=== PATIENT | male | born 1945 | race Caucasian/White ===

== ENCOUNTER 2018-07-11 07:38 | Observation (INO) | payer MEDICARE, OTHER ==
[~2018-07-11] VITALS: Ht 170.2 cm; Wt 92.5 kg
[2018-07-11] VITALS (13 sets, daily range): BP systolic 113–132; BP diastolic 54–89
--- NOTE | ~2018-07-11 | H ---
[address] [address] HISTORY AND PHYSICAL Name: SHANT CONSTANTINO Demetris Room: [address] Alee Kaiser#: [id number] Admission: 07/11/18 Attend Phys: Jose Arias MD, Discharge: 07/12/18 Date of : 43 Report #: [id number] THIS REPORT FOR: //name// Please refer to the History and Physical performed in the physician's office. By: [id number] Records Staff MANUEL /KIKI
[~2018-07-11 07:38] MED LIST: ALEVE220 MG PO; ALLOPURINOL 30300 M1 PO; ALLOPURINOL 30300 M2 PO; ASA5UEC PO; ASPIR 8181 MG PO; ASPIRIN325 PO; BYSTOLIC20 MG PO; CENTRUM SILVER1 EAC4 PO; CRESTOR10 MG PO; FISH OIL 1,0001 EAC5 PO; FISH OIL 1,0001 EAC9 PO; FISH OIL 1,001000 M2 PO; FLAX OIL1000 MG PO; FUROSEMIDE 20 M20 M1 PO; GEMFIBROZIL 60600 MG PO; IMDUR 60 MG TAB60 M1 PO; ISOSORBIDE MON120 MG PO; LASIX 20 MG TAB20 MG PO; LORTAB 5-500 T1 EAC1 PO; MIDODRINE HCL 55 M1 PO; MIDODRINE HCL2.5 M1 PO; MINIPRIN81 MG PO; NIASPAN 500 MG500 M1 PO; NITROGLYCERIN0.4 MG SUBLING; NORVASC 2.5 MG2.5 M1 PO; NORVASC2.5 MG PO; OMEGA-31000 M1 PO; PLAVIX 75 MG TA75 M1 PO; PLAVIX 75 MG TA75 MG PO; RANEXA 500 MG500 M1 PO; RANEXA1000 MG PO; RANEXA500 MG PO; SORINE 80 MG TA80 M1 PO; TOPROL XL100 MG PO; TOPROL XL25 MG PO; TOPROL XL50 MG PO; ZOCOR 20 MG TAB20 M1 PO
[2018-07-11 08:17] LABS: HEMATOCRIT 42.2 % (42.0-52.0); HEMOGLOBIN 14.6 gm/dL (14.0-18.0); MCH 30.5 pg (26.0-34.0); MCHC 34.6 g/dL (28.0-37.0); MCV 88.2 fL (80.0-100.0); MPV 7.1 fl. (7.2-11.1); RBC 4.78 mil/uL (4.50-6.00); WBC 6.5 thou/uL (4.0-11.0)
[2018-07-11] MEDS ORDERED: LIPITOR 20 MG T20 M1 PO (08:17)
[2018-07-11] MEDS ORDERED: IMDUR 60 MG TAB60 M1 PO (08:18)
[2018-07-11 08:25] LABS: ANION GAP 6 mmol/L (7-16); BUN 12 mg/dL (7-18); CALCIUM 8.4 mg/dL (8.5-10.1); CHLORIDE 106 mmol/L (98-107); CO2 29 mmol/L (21-32); GLUCOSE 183 mg/dL (70-99); SODIUM 141 mmol/L (136-145)
[2018-07-11 08:26] LABS: APTT 27.1 Seconds (25.0-31.3); PROTIME 10.2 Seconds (9.20-11.50)
[2018-07-11 08:29] LABS: ALKALINE PHOSPHATASE 65 U/L (46-116); CHOLESTEROL 110 mg/dL (<200); HDL CHOLESTEROL 28 mg/dL (>40); LDL CHOLESTEROL 43 mg/dL (<100); SGOT 34 U/L (15-37); SGPT 58 U/L (30-65); TC:HDL 3.9 Ratio (Not establshd); TOTAL BILIRUBIN 0.6 mg/dL (<0.1-1.0); TOTAL PROTEIN 7.1 g/dL (6.4-8.2); TRIGLYCERIDE 198 mg/dL (<150); VLDL 40 mg/dL (<40)
[2018-07-11 08:32] LABS: SERUM ASSESSMENT Clear
--- NOTE | 2018-07-11 16:16 | EKG ---
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[facility] 1945 Requested By: Jose Arias Order Number: [id number] Joanna MD: Jose Arias Measurements Intervals [place] Rate: 63 P: 41 MO: 290 QRS: 28 QRSD: 112 T: 71 QT: 412 QTc: 422 Interpretive Statements Sinus rhythm Prolonged [place] interval Borderline intraventricular conduction delay Compared to ECG 02/17/2016 08:59:01 No significant changes Electronically Signed On 07-11-2018 16:16:00 CDT by Jose Arias [email or web address] <ELECTRONICALLY SIGNED> By: Jose Arias MD, [facility] 07/11/18 1616 5 5 Jose Arias MD, FACC /EPI
--- NOTE | 2018-07-11 16:19 | EKG ---
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 07/11/18 1619 1200 1200 Jose Arias MD, FACC /EPI
--- NOTE | 2018-07-11 17:02 | CARD ---
[address] [address] CARDIAC CATH REPORT Name: SHANT CONSTANTINO Room: [address] Alee M.RTacos#: [id number] Admission: 07/11/18 Attend Phys: Jose Arias MD, Discharge: Date of : 41 Report #: [id number] THIS REPORT FOR: //name// APPROVED REPORT Study performed: 07/11/2018 08:10:02 Patient Details Patient Status: Out-Patient Room #: The patient is a 72 year-old male Event Personnel Jose Arias Health And Social Care Teacher, Marisela Cruz RTR Monitor, Mateus Cao (R) Nan Luna Frances Hands Hanger Procedures Performed Art Access - R femoral artery* Left Heart Cath w/or w/o Coronaries [facility] w/wo Plasty Single LAD PTCA Single Vessel LAD PCISINGLE, FFR, Atherectomy, Hemostasis w/ Angioseal Indication Unstable angina Risk Factors Hypercholesterolemia, Hypertension Previous Procedures/Diagnoses Previous PCI Admission/Lab Medications/Medications given during procedure Aspirin, Platelet Aff. Inhib., Plavix PO 600 mg, Aspirin PO 162 mg, Heparin IV 8000 units, Angiomax IV 14 ml, Angiomax Drip IV 32.55 ml per hr Procedure Narrative The patient was brought electively to the Cardiac Catheterization Laboratory and was prepped and draped in a sterile manner. The right femoral was infiltrated with 2% Lidocaine subcutaneous anesthesia. A 6Fr pinnacle sheath was inserted into the . Coronary angiography was performed using coronary diagnostic catheters. The right coronary system was accessed and visualized with a Diagnostic 6Fr AL1 catheter. The left coronary system was accessed and visualized with a Diagnostic 6Fr JL4 catheter. The left ventricle was accessed and visualized with a Diagnostic 6Fr straight pigtail catheter. An aortogram of the HARRIS was performed. Closure [place] [address] CARDIAC CATH REPORT Name: DOUGIESHANT Demetris Room: [address] M.R.#: [id number] Admission: 07/11/18 Attend Phys: Jose Arias MD, Discharge: Date of : 43 Report #: [id number] a Fr Angioseal STS 6Fr. Hemostasis was obtained with manual pressure following sheath removal without any complications. The patient tolerated the procedure well and there were no complications associated with the procedure. There was no hematoma. Intraoperative Conscious Sedation Sedation start time: 09:41 Case end Time: 11:20 Fentanyl 50 mcg Versed 3 mg Fluoro Time: 31.6 minutes Dose: DAP 035306 cGycm2 4278 mGy Contrast Type and Amount: Visipaque 600 ml Diagnostic Cath Left Main 0 Percent narrowing LAD 70% proximal stenosis involving the takeoff of the first diagonal branch with 90% distal LAD in-stent restenosis Circumflex Nondominant vessel with 30% proximal mid and distal narrowing Right Coronary Anomalous origin dominant vessel with 40% narrowing at the acute margin Left Ventriculography The left ventricle is normal in size with normal contractility. The left ventricular ejection fraction is estimated to be 60%. Left ventricular wall motion abnormalities are not present. There is no mitral insufficiency. IVUS Fractional Flow [place] was performed on the distal left anterior descending artery segment vessel. A 6Fr XB 3.0 Guide Catheter was used to engage the ostium. A FloWire Interventional Guidewire was used. IVUS Findings FFR was performed on sequential proximal and distal LAD lesions with a minimum value of 0.77 after adenosine provocation, suggesting hemodynamic significance Hemodynamics The aortic pressure is 125/59 mmHg with a mean of 83 mmHg. The left ventricular pressure is 122/1 mmHg with a mean of mmHg. The left ventricular end diastolic pressure is 10 mmHg. Pullback from the left ventricle to the aorta revealed no gradient [place] [address] CARDIAC CATH REPORT Name: SHANT CONSTANTINO Room: [address] M.R.#: [id number] Admission: 07/11/18 Attend Phys: Jose Arias MD, Discharge: Date of : 43 Report #: [id number] valve. PCI Technique Lesion Anticoagulation was achieved with Angiomax. Percutaneous coronary intervention was performed on the distal left anterior descending artery segment. The lesion stenosis prior to intervention was 90% with ESMER 3 flow. A 6FR XB 3.0 100CM Guide Catheter was used to engage the ostium. A ProwaterFlex 180CM Interventional Guidewire was used to cross the lesion. BALLOON DILATION A Balloon catheter NC Trek RX 2.0 X 15 was inserted and inflated up to 10.00atm for 12seconds. Additional Inflation: 12.00atm for 10seconds. Angiosculpt PTCA 2.0x10mm was inserted into the distal left anterior decending artery segment and inflated up to 16atm for 9 seconds. Additional inflation: 14:00atm for 5 seconds, 16:00atm for 11 seconds, 16:00atm for 11 seconds. NC Trek RX 2.25x12 was inserted and inflated up to 12:00atm for 4 seconds. Additional inflation for 16:00atm for 18 seconds, 16:00atm for 10 seconds. STENT DEPLOYMENT A drug-eluting stent [place] 2.0x15 was inserted and inflated up to 14.00atm for 8seconds. Additional Inflation: 15.00atm for 7seconds. Additional Inflation: 18.00atm for 12seconds. POST STENT DEPLOYMENT BALLOON DILATION A Balloon catheter NC Trek RX 2.25x12 was inserted and inflated up to 15.00atm for 23seconds. Final angiography reveals 0 % stenosis with ESMER 3 flow. PCI Technique Lesion The lesion stenosis prior to intervention was distal left anterior descending artery segment% with ESMER 6Fr XB 3.0 flow. A Guide Catheter was used to engage the FloWire ostium. BALLOON DILATION A Balloon catheter FFR was performed on sequential proximal and distal LAD lesions with a minimum value of 0.77 after adenosine provocation, suggesting hemodynamic significance was inserted and inflated up to kim for seconds. PCI Technique Lesion 2 Percutaneous Coronary Intervention was performed on the proximal left anterior descending artery segment. The lesion stenosis prior to intervention was 70% with ESMER 3 flow. A 6FR XB 3.0 100CM Guide [address] [address] CARDIAC CATH REPORT Name: SHANT CONSTANTINO Room: [address] Alee Kaiser#: [id number] Admission: 07/11/18 Attend Phys: Jose Arias MD, Discharge: Date of : 43 Report #: [id number] Catheter was used to engage the ostium. A ProwaterFlex 180CM Interventional Guidewire was used to cross the lesion. Balloon Dilation A Balloon catheter [id number] Trek RX 3.0 X 12 was inserted and inflated up to 17.00atm for 9seconds. Additional Inflation: 20.00atm for 7seconds. Additional Inflation: 22.00atm for 9seconds. Stent Deployment A drug-eluting stent Xience Alpine RX 3.25X15 was inserted and inflated up to 12:00atm for 9seconds. Additional Inflation: 14:00atm for 10seconds. Final angiography reveals 10 % stenosis with ESMER 3 flow. Conclusion #1 significant multivessel coronary artery disease characterized by the following: A 70% proximal LAD stenosis with 90% distal LAD in-stent restenosis B 30% proximal and mid and distal circumflex narrowing C dominant right coronary artery with 40% narrowing at the acute margin #2 normal left ventricular systolic function, estimate ejection fraction being 60% #3 normal left-sided hemodynamics study #4 abnormal fractional flow reserve pertinent to the sequential LAD lesions with minimal value of 0.77, suggesting hemodynamic significance #5 successful percutaneous coronary intervention with deployment drug-eluting stents at the sites of 70% proximal and 90% distal LAD in-stent restenosis with 10 and 0% residual narrowings following stent deployment and ESMER-3 flow the distal vessel Recommendations Daily ASA with Plavix for at least one year Cardiac Risk Reduction Program Aggressive Medical Therapy [address] [address] CARDIAC CATH REPORT Name: SHANT CONSTANTINO Room: [address] Alee MTacosRTacos#: [id number] Admission: 07/11/18 Attend Phys: Jose Arias MD, Discharge: Date of : 43 Report #: [id number] Medications Administered Clopidogrel Diagnostic Cath Approved by: Jose Arias MD Date/Time: 07/11/2018 17:00:44 <ELECTRONICALLY SIGNED> By: Jose Arias MD, FACC 07/11/181701 01 01Jose Arias MD, FACC /INF
[2018-07-12] VITALS: BP 125/60; BP 158/71
[2018-07-12 04:00] VITALS: BP 86/29
[2018-07-12 05:26] LABS: HEMOGLOBIN 12.7 gm/dL (14.0-18.0); MCHC 35.3 g/dL (28.0-37.0); MCV 87.9 fL (80.0-100.0); MPV 7.4 fl. (7.2-11.1); RBC 4.1 mil/uL (4.50-6.00); RDW-CV 14.8 % (10.5-14.5)
[2018-07-12 05:50] LABS: ALBUMIN 3.4 g/dL (3.4-5.0); ALKALINE PHOSPHATASE 52 U/L (46-116); ANION GAP 5 mmol/L (7-16); BUN 11 mg/dL (7-18); CALCIUM 7.9 mg/dL (8.5-10.1); CHLORIDE 106 mmol/L (98-107); CO2 29 mmol/L (21-32); CREATININE 0.9 mg/dL (0.6-1.3); GLUCOSE 147 mg/dL (70-99); POTASSIUM 4.1 mmol/L (3.5-5.1); SGOT 29 U/L (15-37); SGPT 51 U/L (30-65); SODIUM 140 mmol/L (136-145); TOTAL BILIRUBIN 0.5 mg/dL (<0.1-1.0); TOTAL PROTEIN 5.9 g/dL (6.4-8.2); TROPONIN-I LEVEL <0.06 ng/mL (<0.06)
[2018-07-12 08:00] VITALS: BP 126/57
[2018-07-12 10:39] VITALS: BP 123/64
--- NOTE | 2018-07-12 13:06 | EKG ---
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: : 1945 Requested By: Jose Arias Order Number: [id number] Joanna MD: Jacob Jaeger Measurements Intervals [place] Rate: 64 P: 45 [place]: 272 QRS: 44 QRSD: 105 T: 73 QT: 417 QTc: 431 Interpretive Statements Sinus rhythm Prolonged [place] interval Borderline low voltage, extremity leads Compared to ECG 07/11/2018 12:00:53 Intraventricular conduction delay no longer present Electronically Signed On 07-12-2018 13:06:06 CDT by Jacob Jaeger [email or web address] <ELECTRONICALLY SIGNED> By: Jacob Jaeger MD, [facility] 07/12/18 1306 4 Jacob Jaeger MD, [facility] /EPI
--- NOTE | 2018-07-15 10:34 | D ---
[address] [address] DISCHARGE SUMMARY Name: SHANT CONSTANTINO Room: [address] Alee Kaiser#: [id number] Admission: 07/11/18 Attend Phys: Jose Arias MD, Discharge: 07/12/18 Date of : 43 Report #: [id number] THIS REPORT FOR: //name// CC: Jose Ramírez DATE OF SERVICE: 07/12/2018 FINAL DISCHARGE DIAGNOSES: 1. Unstable angina. 2. Coronary artery disease. 3. Status post percutaneous coronary intervention of the left anterior descending on 07/11/2018. 4. Hypertension. 5. Peripheral vascular disease. 6. Paroxysmal atrial fibrillation. 7. Hyperlipoproteinemia. PROCEDURES: 07/11/2018 -- left heart catheterization, left ventriculography, selective coronary arteriography, and percutaneous coronary intervention with deployment of drug-eluting stents in the proximal and distal LAD. HOSPITAL COURSE: The patient is a very pleasant 72-year-old male with a history of coronary artery disease, status post prior multivessel stenting. He presented with increasing episodes of chest discomfort on exertion such as climbing a flight of steps, typical of his prior ischemic syndrome. This was somewhat responsive to nitrates. He has been on dual antiplatelet therapy and a long-acting mononitrate. He has underlying hypertension and hyperlipidemia. There is a history of paroxysmal atrial fibrillation, on chronic sotalol therapy. In this context, he presented for cardiac catheterization on 07/11/2018, which revealed significant LAD disease with 70% proximal LAD stenosis and 90% distal LAD in-stent restenosis. Fractional flow reserve was calculated pertinent to sequential LAD lesions with a minimum value of 0.77, suggesting hemodynamic significance. I performed percutaneous coronary intervention, deploying a 3.25 x 15 mm Xience Alpine drug-eluting stent in the proximal LAD and a 2.0 x 15 mm Rock Integrity drug-eluting stent in the distal LAD with 10 and 0% residual narrowing following stent deployment and ESMER flow of the distal vessel. Troponin was less than 0.06 post-procedurally. There was good hemostasis at the right femoral site of catheterization. The patient ambulated [place] [address] DISCHARGE SUMMARY Name: SHANT CONSTANTINO Room: [address] Alee Kaiser#: [id number] Admission: 07/11/18 Attend Phys: Jose Arias MD, Discharge: 07/12/18 Date of : 43 Report #: [id number] LABORATORY DATA: On 07/12 revealed a sodium 140, potassium 4.1, BUN 11, creatinine 0.9, hemoglobin 12.7, white blood cell count 7000 with 159,000 platelets. DISCHARGE MEDICATIONS: The patient was discharged to home on the following medications: Allopurinol 300 mg daily, amlodipine 2.5 mg daily, aspirin 81 mg daily, atorvastatin 20 mg daily, Plavix 75 mg daily with 600 mg anjali-procedural dose, fish oil 1000 mg daily, flaxseed oil 1400 mg daily, furosemide 20 mg daily, Imdur 60 mg daily, metoprolol succinate 100 mg daily, midodrine 2.5 mg b.i.d., Centrum Silver vitamins one tablet daily, Naprosyn 220 mg b.i.d. as needed, fish oil 1000 mg in the evening, sotalol 80 mg b.i.d. The patient is scheduled to return to see me in 4-6 weeks. <ELECTRONICALLY SIGNED> By: Jose Arias MD, FACC 07/15/18 1034 1259 1948John Anthony Arias MD, FACC /nt
== END 2018-07-12 11:06 | disposition home or self-care (01) ==
LOC: M.CL 07:38 → M.2W 11:46
PROVIDERS: ADMIT Internal Medicine
DX: I25.110 Atherosclerotic heart disease of native coronary artery with unstable angina pectoris (principal); I10 Essential (primary) hypertension; I73.9 Peripheral vascular disease, unspecified; I48.0 Paroxysmal atrial fibrillation; E78.5 Hyperlipidemia, unspecified

== ENCOUNTER → 2019-01-23 | Outpatient (CLI) | payer OTHER ==
[~2019-01-23] VITALS: Ht 170.2 cm; Wt 93.0 kg
[2019-01-23] VITALS (10 sets, daily range): BP systolic 115–133; BP diastolic 61–69
[~2019-01-23] MED LIST changes: +LIPITOR 20 MG T20 M1 PO
[2019-01-23 08:35] LABS: HEMATOCRIT 40.1 % (42.0-52.0); HEMOGLOBIN 13.9 gm/dL (14.0-18.0); MCH 29.7 pg (26.0-34.0); MCHC 34.7 g/dL (28.0-37.0); MCV 85.8 fL (80.0-100.0); MPV 7.5 fl. (7.2-11.1); RBC 4.67 mil/uL (4.50-6.00); RDW-CV 14.8 % (10.5-14.5); WBC 6.6 thou/uL (4.0-11.0)
[2019-01-23 08:48] LABS: APTT 24.3 Seconds (25.0-31.3); PROTIME 10.6 Seconds (9.20-11.50)
[2019-01-23 08:49] LABS: ALBUMIN 3.8 g/dL (3.4-5.0); ALKALINE PHOSPHATASE 56 U/L (46-116); ANION GAP 9 mmol/L (7-16); BUN 16 mg/dL (7-18); CALCIUM 8.8 mg/dL (8.5-10.1); CHLORIDE 105 mmol/L (98-107); CHOLESTEROL 107 mg/dL (<200); CO2 27 mmol/L (21-32); GLUCOSE 177 mg/dL (70-99); HDL CHOLESTEROL 24 mg/dL (>40); LDL CHOLESTEROL 38 mg/dL (<100); POTASSIUM 4.3 mmol/L (3.5-5.1); SGOT 34 U/L (15-37); SGPT 57 U/L (30-65); SODIUM 141 mmol/L (136-145); TC:HDL 4.5 Ratio (Not establshd); TOTAL BILIRUBIN 0.6 mg/dL (<0.1-1.0); TOTAL PROTEIN 6.8 g/dL (6.4-8.2); TRIGLYCERIDE 225 mg/dL (<150); VLDL 45 mg/dL (<40)
[2019-01-23 08:56] LABS: SERUM ASSESSMENT Clear
--- NOTE | 2019-01-23 11:20 | EKG ---
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
--- NOTE | 2019-01-23 11:26 | CARD ---
[address] [address] CARDIAC CATH REPORT Name: SHANT CONSTANTINO Room: [facility] Job#: [id number] Admission: 01/23/19 Attend Phys: Jose Arias MD, Discharge: Date of : 43 Report #: [id number] THIS REPORT FOR: //name// APPROVED REPORT Study performed: 01/23/2019 08:49:06 Patient Details Patient Status: Out-Patient Room #: The patient is a 73 year-old male Event Personnel Jose Arias General Labor, Genesis Raymundo RN Labeler, Mateus Cao (R) Monitor, Bennett Davies CONTRACTING OFFICER Scrub Procedures Performed Left Heart Cath w/or w/o Coronaries Indication Positive stress test Risk Factors Obesity, Hypercholesterolemia, Hypertension Previous Procedures/Diagnoses Previous PCI Procedure Narrative The patient was brought electively to the Cardiac Catheterization Laboratory and was prepped and draped in a sterile manner. The right femoral was infiltrated with 2% Lidocaine subcutaneous anesthesia. A Mer[place] 6 FR sheath was inserted into the right femoral artery. Coronary angiography was performed using coronary diagnostic catheters. The right coronary system was accessed and visualized with a Diagnostic JR 4 catheter. The left coronary system was accessed and visualized with a Diagnostic JL 3.5 catheter. The left ventricle was accessed and visualized with a Diagnostic Straight Pigtail catheter. Left ventricular/Aortic Valve gradient assessed via catheter pullback. Left ventriculogram was performed in HARRIS projection. Pre-demployment femoral angiogram was performed . Closure device was deployed with a Fr MynxGrip 6/7F. The patient tolerated the procedure well and there were no complications associated with the procedure. [place] [address] CARDIAC CATH REPORT Name: SHANT CONSTANTINO Room: [facility]#: [id number] Admission: 01/23/19 Attend Phys: Jose Arias MD, Discharge: Date of : 41 Report #: [id number] Intraoperative Conscious Sedation Sedation start time: 9:50 Case end Time: 10:26 Fentanyl 25 mcg Versed 2 mg Fluoro Time: 4.5 minutes Dose: DAP 735106 cGycm2 1520 mGy Contrast Type and Amount: Visipaque 150 ml Diagnostic Cath Left Main 0% narrowing LAD Widely patent proximal and mid LAD stents with 50% distal LAD narrowing Circumflex 30% proximal circumflex narrowing with widely patent stents Right Coronary Widely patent proximal and mid vessel stents with 40% narrowing at the acute margin and 40% distal right coronary narrowing Left Ventriculography The left ventricle is normal in size with normal contractility. The left ventricular ejection fraction is estimated to be 65%. Left ventricular wall motion abnormalities are not present. There is no mitral insufficiency. Hemodynamics The aortic pressure is 111/52 mmHg with a mean of 74 mmHg. The left ventricular pressure is 114/2 mmHg with a mean of mmHg. The left ventricular end diastolic pressure is 8 mmHg. There was no gradient across the aortic valve upon pullback. Conclusion #1 coronary artery disease characterized by the following: A widely patent proximal and mid LAD stents with 50% distal LAD narrowing B nondominant circumflex with widely patent stents and 30% proximal narrowing C dominant right coronary artery with widely patent proximal and mid vessel stents with 40% narrowing at the acute margin and 40% distal narrowing #2 normal left ventricular systolic function, estimated ejection fraction being 65% [place] [address] CARDIAC CATH REPORT Name: DOUGIESHANT Demetris Room: [facility]#: [id number] Admission: 01/23/19 Attend Phys: Jose Arias MD, Discharge: Date of : 41 Report #: [id number] #3 normal left-sided hemodynamics study. Recommendations Cardiac Risk Reduction Program Aggressive Medical Therapy Diagnostic Cath Approved by: Jose Arias MD Date/Time: 01/23/2019 11:25:44 <ELECTRONICALLY SIGNED> By: Jose Arias MD, [facility] 01/23/19 1126 1126 1126Jomeka Arias MD, FAC /INF
== END | disposition home or self-care (01) ==
LOC: M.CL 07:26
PROVIDERS: Internal Medicine
DX: I25.10 Atherosclerotic heart disease of native coronary artery without angina pectoris (principal); I10 Essential (primary) hypertension; E78.00 Pure hypercholesterolemia, unspecified; I48.91 Unspecified atrial fibrillation; I48.92 Unspecified atrial flutter; I73.9 Peripheral vascular disease, unspecified; G47.33 Obstructive sleep apnea (adult) (pediatric); J44.9 Chronic obstructive pulmonary disease, unspecified; Z79.01 Long term (current) use of anticoagulants; E66.09 Other obesity due to excess calories; Z79.899 Other long term (current) drug therapy; Z98.890 Other specified postprocedural states; Z95.5 Presence of coronary angioplasty implant and graft